=== PATIENT | female | born 1945 | race Caucasian/White ===

== ENCOUNTER 2023-01-03 07:59 | Emergency (ER) | payer MEDICARE, SELFPAY ==
[2023-01-03 08:02] VITALS: BP 166/77; PULSE 90; RESP 16; TEMP 36.6; O2SAT 100; BMI 21.8
--- NOTE | 2023-01-03 08:19 | ED.ANXIETY1 ---
HPI - Anxiety General Chief Complaint: Anxiety Stated Complaint: ANXIETY Time Seen by Provider: 01/03/23 08:08 Source: patient Mode of arrival: walk-in Limitations: no limitations History of Present Illness HPI narrative: patient here with her son for some anxiety. She's had some personal challenges home including the loss of her step mother who just and the is in a couple of hours. She did not sleep last night after the showing. She has no history of depression or anxiety disorder. She is very well founded has a good support system. She does not have any suicidal or homicidal ideations. She says she would just like something take the edge off for a day or so. She does not have a medical complaints at all. Related Data Home Medications Medication Instructions Recorded Confirmed amlodipine 10 mg tablet 10 mg PO DAILY 01/03/23 01/03/23 Allergies Allergy/AdvReac Type Severity Reaction Status Date / Time No Known Drug Allergies Allergy Verified 01/03/23 08:02 [facility] Social History Smoking status: Former smoker Exam Narrative Exam Narrative: vital signs are as noted. She does take blood pressure meds. Otherwise she is healthy pleasant maintains good eye contact her personal hygiene is excellent. She does not seem overly labile at this time. But she does voice her anxieties about the today. There is no respiratory distress she's not to Make. She is not agitated or restless. Neurological examination she is awake alert cooperative pleasant affect is use one of sadness and low but agreed but I don't believe her reaction is overwhelming. Constitutional Vital Signs - 24 hr 01/03/23 08:02 Temperature 97.8 F Pulse Rate [Monitor] 90 Respiratory Rate 16 Blood Pressure [Right Arm] 166/77 H Pulse Oximetry 100 Oxygen Delivery Method Room Air Course Vital Signs Vital signs: Vital Signs Temperature 97.8 F 01/03/23 08:02 Pulse Rate 90 01/03/23 08:02 Respiratory Rate 16 01/03/23 08:02 Blood Pressure 166/77 H 01/03/23 08:02 Pulse Oximetry 100 01/03/23 08:02 Oxygen Delivery Method Room Air 01/03/23 08:02 Temperature 97.8 F 01/03/23 08:02 Pulse Rate 90 01/03/23 08:02 Respiratory Rate 16 01/03/23 08:02 Blood Pressure 166/77 H 01/03/23 08:02 Pulse Oximetry 100 01/03/23 08:02 Oxygen Delivery Method Room Air 01/03/23 08:02 MDM - Anxiety MDM Narrative Medical decision making narrative: patient presents with anxiety with the recent loss and having a grief reaction. She has a very strong support system with family and others. She has a coming up in a couple hours. She's never used anxiolytic medication before so we'll start with Ativan 1 mg twice a day for 2-3 days. If she has a prolonged grief response she can follow-up with her primary doctor for referral for counseling. She seemed very open to these recommendations I believe she'll do well. Discharge Plan Discharge Chief Complaint: Anxiety Clinical Impression: Acute anxiety Patient Disposition: Home, Self-Care Time of Disposition Decision: 08:24 Prescriptions / Home Meds: No Action amlodipine 10 mg tablet 10 mg PO DAILY Additional Instructions: follow up with the primary care doctor for grief counseling as needed. Use the Ativan for a couple days only Stand Alone Forms: Portal Instructions Referrals: TERESA CASIANO [Primary Care Provider] - 1 week
[2023-01-03] MEDS: LORAZEPAM 1 MG TABLET PO (08:30)
== END 2023-01-03 08:33 | disposition home or self-care (01) ==
PROVIDERS: Emergency Provider Emergency Medicine Emergency Medical Services; PCP Nurse Practitioner
DX: F41.9 Anxiety disorder, unspecified (principal); Z87.891 Personal history of nicotine dependence
CPT/HCPCS: 99283

== ENCOUNTER 2025-03-20 14:52 | Emergency (ER) | payer MEDICARE, SELFPAY ==
[2025-03-20 14:57] VITALS: BP 160/90; PULSE 81; TEMP 36.2; O2SAT 96; BMI 17.6
--- NOTE | 2025-03-20 15:37 | ED.GENADUL1 ---
HPI HPI - General Adult General Chief complaint: Skin/Abscess/Foreign Body Stated complaint: RASH L ARM Time Seen by Provider: 03/20/25 15:11 Source: patient Mode of arrival: walk-in Limitations: no limitations History of Present Illness HPI narrative: Patient is an 80-year-old female that presents to the emergency department today with complaints of spreading rash on her left wrist/forearm since yesterday. She notes that she was at work in the yard yesterday and when she went inside did have some itchy red areas on the medial ventral side of her wrist. She did use hydrocortisone cream that did help. Today she noticed that the rash had spread to the dorsal part of the forearm. She denies any fever, chest pain, shortness of breath, chills, night sweats, or abdominal pain. She has a history of hypertension and denies any antiplatelet or anticoagulant medication use. She states that she does not have any associated pain with this and there is no numbness or tingling or weakness in her left hand. Related Data Home Medications ?Medication ?Instructions ?Recorded ?Confirmed amlodipine 10 mg tablet 10 mg PO DAILY 01/03/23 01/03/23 lorazepam 1 mg tablet (Ativan) 1 mg PO Q12H PRN anxiety 01/03/23 01/03/23 Allergies Allergy/AdvReac Type Severity Reaction Status Date / Time No Known Drug Allergies Allergy Verified 01/03/23 08:02 Review of Systems ROS Status of ROS 10 or more systems reviewed and unremarkable except as noted in history and below PFSH PFSH Social History Smoking status: Former smoker Little interest or pleasure in doing things: not at all Feeling down, depressed, or hopeless: not at all Exam Narrative Exam Narrative: General: No distress, age-appropriate Skin: Warm, dry, no pallor. Left medial ventral abrasion/puncture wounds with surrounding erythema. No vesicles. No induration around the wounds. There is erythema that extends to the dorsal aspect of the wrist/forearm. The dorsal aspect erythema is nonblanchable, no associated wounds/punctures/vesicles. Head: Normocephalic, atraumatic. Neck: Supple, non-tender. Eye: Pupils are equal, round and EOMI. No scleral icterus. Ears, Nose, Mouth, and Throat: No nasal mucosal hypertrophy. Oral mucosa is moist, no posterior oropharynx erythema, uvula is mid-line Cardiovascular: Regular Rate and Rhythm without murmur, gallop or rub. Respiratory: No accessory muscle use or respiratory distress. Lungs are clear to auscultation, no wheezing, rales or rhonchi Chest Wall: no tenderness Back: No midline thoracic or lumbar vertebral tenderness. Musculoskeletal: Full ROM of all extremities, no calf or popliteal tenderness GI: Abdomen is soft, non-distended, non tender to palpation. No masses appreciated. No rebound, guarding, or rigidity noted. Neurological: A&O x4. No cranial nerve dysfunction observed. No truncal ataxia. Moves all extremities. Sensation intact. Psychiatric: Cooperative and interactive. Normal mood and affect. Constitutional Vital Signs, click to edit/add: Last Vital Signs Temp 97.1 F L 03/20/25 14:57 Pulse 81 03/20/25 14:57 Resp 18 03/20/25 14:57 BP 160/90 H 03/20/25 14:57 Pulse Ox 96 03/20/25 14:57 O2 Del Method Room Air 03/20/25 14:57 Course Vital Signs Vital signs: Vital Signs Temperature 97.1 F L 03/20/25 14:57 Pulse Rate 81 03/20/25 14:57 Respiratory Rate 18 03/20/25 14:57 Blood Pressure 160/90 H 03/20/25 14:57 Pulse Oximetry 96 03/20/25 14:57 Oxygen Delivery Method Room Air 03/20/25 14:57 Temperature 97.1 F L 03/20/25 14:57 Pulse Rate 81 03/20/25 14:57 Respiratory Rate 18 03/20/25 14:57 Blood Pressure 160/90 H 03/20/25 14:57 Pulse Oximetry 96 03/20/25 14:57 Oxygen Delivery Method Room Air 03/20/25 14:57 Medical Decision Making MDM Narrative Medical decision making narrative: 80-year-old female presented to the emergency department with a spreading rash on her left wrist after working in the yard yesterday. She is unsure if she got bit by insects but was working around [place]. Patient denies fever, night sweats, chills and is afebrile here. Vitals are stable. There is erythema surrounding about 5 puncture/abrasions on the medial ventral aspect of her left wrist. There is no drainage from the wounds, no induration. These were present last night after working in the yard and were itchy. Itching has been relieved by hydrocortisone cream. This morning a darker area of erythema appeared on the dorsal aspect of the distal wrist. There are no vesicles to suggest poison cher. The erythema/ecchymosis is nonblanchable. There is no associated edema. No loss of function of her left hand. 2+ radial pulse. No paresthesias in the left hand. No indication at this time for antibiotics. I did discuss with patient should the area of concern on the dorsal aspect of her wrist or the other area of erythema on the ventral side continue to spread that she should return to the emergency department for evaluation. Also if she develops any systemic symptoms such as fever, night sweats, chills that she should also return for evaluation. She will be discharged with instructions for supportive care at home. Differential Diagnosis Differential Diagnosis: Allergic/Inflammatory reaction, cellulitis Discharge Plan Discharge Chief Complaint: Skin/Abscess/Foreign Body Clinical Impression: Contact dermatitis Patient Disposition: Home, Self-Care Time of Disposition Decision: 15:33 Condition: Good Mode of Transportation: Private Vehicle Prescriptions / Home Meds: No Action amlodipine 10 mg tablet 10 mg PO DAILY lorazepam [Ativan] 1 mg tablet 1 mg PO Q12H PRN (Reason: anxiety) Print Language: Green[place]ic Instructions: Contact Dermatitis (ED) Additional Instructions: Continue to monitor rash and do not scratch it. If the rash continues to spread return to the Emergency Department for evaluation. Referrals: TERESA CASIANO [Primary Care Provider, [facility]] - 1 week Discharge Date/Time: 03/20/25 15:42
== END 2025-03-20 15:42 | disposition home or self-care (01) ==
PROVIDERS: Emergency Provider Student in an Organized Health Care Education/Training Program; PCP Nurse Practitioner
DX: L25.9 Unspecified contact dermatitis, unspecified cause (principal); I10 Essential (primary) hypertension; Z87.891 Personal history of nicotine dependence
CPT/HCPCS: 99281